=== PATIENT | female | born 1960 | race Caucasian/White ===

== ENCOUNTER 2020-08-24 19:41 | Emergency (ER) | payer OTHER ==
[2020-08-24] MEDS ORDERED: [UNRECOGNIZED DRUG - OTHER] EARLF (22:10)
== END 2020-08-24 23:35 | disposition home or self-care (01) ==
LOC: ER1 19:41
DX: H60.63 Unspecified chronic otitis externa, bilateral (principal); I10 Essential (primary) hypertension
CPT/HCPCS: 70450; 87070; 87205; 99283

== ENCOUNTER → 2020-12-23 | Outpatient (CLI) | payer OTHER ==
[~2020-12-23] MED LIST: [UNRECOGNIZED DRUG - OTHER] EARLF
== END ==
LOC: CT 13:15
DX: H71.02 Cholesteatoma of attic, left ear (principal)
CPT/HCPCS: 36415; 70481; 82565; Q9967

== ENCOUNTER → 2020-12-30 | Outpatient (CLI) | payer OTHER | LOC: LBRF 16:00 | DX: H60.392 Other infective otitis externa, left ear (principal) | CPT/HCPCS: 87070; 87205 ==